=== PATIENT | female | born 1970 | race Caucasian/White ===

== ENCOUNTER 2018-10-29 22:50 | Emergency (ER) | payer SELFPAY ==
[2018-10-29 23:16] VITALS: BP 123/78; PULSE 97
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
== END 2018-10-30 00:10 | disposition home or self-care (01) ==
LOC: LL.ED 22:50
DX: M19.071 Primary osteoarthritis, right ankle and foot (principal); F17.210 Nicotine dependence, cigarettes, uncomplicated
CPT/HCPCS: 73610-RT; 99283-25

== ENCOUNTER 2023-01-09 14:38 | Emergency (ER) | payer MEDICAID ==
[2023-01-09 15:39] LABS: APPEARANCE,URINE SLIGHTLY CLOUDY; BILIRUBIN,URINE NEGATIVE (NEGATIVE); COLOR,URINE YELLOW; GLUCOSE,URINE NEGATIVE (NEGATIVE); KETONES,URINE TRACE mg/dL (NEGATIVE); LEUKOCYTE ESTERASE,URINE NEGATIVE (NEGATIVE); NITRITE,URINE POSITIVE (NEGATIVE); OCCULT BLOOD,URINE TRACE-INTACT (NEGATIVE); PH,URINE 5.5 (5.0-9.0); PROTEIN,URINE NEGATIVE (NEGATIVE); UROBILINOGEN,URINE 0.2 E.U./dL (0.2-1.0)
[2023-01-09 15:40] LABS: BASOPHILS ABSOLUTE AUTO 0.04 K/uL (0.00-0.20); BASOPHILS PERCENT AUTO 0.5 % (0.0-2.0); EOSINOPHILS PERCENT AUTO 6.2 % (0.0-5.0); HEMATOCRIT 33.5 % (34.0-46.0); HEMOGLOBIN 10.8 g/dL (11.7-15.5); LYMPHOCYTES ABSOLUTE AUTO 2.08 K/uL (0.50-3.50); LYMPHOCYTES PERCENT AUTO 25.6 % (10.0-50.0); MEAN CORPUSCULAR HEMOGLOBIN 27.6 pg (28.2-33.3); MEAN CORPUSCULAR HGB CONC 32.2 g/dL (31.7-36.0); MEAN CORPUSCULAR VOLUME 85.5 fL (84.0-98.0); MONOCYTES ABSOLUTE AUTO 0.71 K/uL (0.00-1.00); MONOCYTES PERCENT AUTO 8.7 % (2.0-14.0); PLATELET COUNT,PLT 451 K/uL (150-350); RED BLOOD CELL COUNT 3.92 M/uL (3.77-5.09); RED CELL DISTRIBUTION WIDTH 14.4 % (11.2-14.1); WHITE BLOOD CELL COUNT,WBC 8.1 K/uL (4.0-10.2)
[2023-01-09 15:48] LABS: BACTERIA,URINE MANY /HPF (NONE TO FEW); EPITHELIAL CELLS,URINE FEW /LPF; MUCUS,URINE RARE /LPF (NEGATIVE); WBC,URINE 0-5 /HPF
[2023-01-09 15:49] LABS: AMPHETAMINES SCREEN, URINE POSITIVE (NEGATIVE); BARBITURATE SCREEN,URINE NEGATIVE (NEGATIVE); BENZODIAZEPINES SCREEN,URINE NEGATIVE (NEGATIVE); COCAINE METABOLITES,URINE NEGATIVE (NEGATIVE); EDDP,URINE SCREEN NEGATIVE (NEGATIVE); METHAMPHETAMINES SCREEN, URINE POSITIVE (NEGATIVE); TCA SCREEN,URINE NEGATIVE (NEGATIVE); THC SCREEN,URINE 50 NG/ML NEGATIVE (NEGATIVE)
[2023-01-09 15:54] LABS: BUPRENORPHINE SCREEN,URINE NEGATIVE (NEGATIVE)
[2023-01-09 15:55] LABS: OXYCODONE SCREEN,URINE POSITIVE (NEGATIVE)
[2023-01-09 15:56] LABS: PROTHROMBIN TIME 9.9 SEC (9.0-11.1)
[2023-01-09 16:14] LABS: ALBUMIN 3.7 g/dL (3.4-5.0); ANION GAP 10.5 meq/L (7-15); BILIRUBIN TOTAL 0.3 mg/dL (0.2-1.0); CALCIUM 8.9 mg/dL (8.5-10.1); CARBON DIOXIDE,CO2 25.5 mmol/L (21.0-32.0); CREATININE 0.63 mg/dL (0.51-1.17); EST CRCL DRUG DOSING (CG) 84.49 mL/min; POTASSIUM,K 3.8 mmol/L (3.5-5.1); PROTEIN TOTAL,TP 7.1 g/dL (6.4-8.2)
[2023-01-09] MEDS ORDERED: Ketorolac 15 MG/ML SDV IVPUSH ONE (16:41)
[2023-01-09] MEDS ORDERED: Sodium Chloride 0.9% 10 ML Syringe FLUSH PRN (16:58)
[2023-01-09 17:39] VITALS: BP 134/78; PULSE 55
[2023-01-09] MEDS ORDERED: Ciprofloxacin 500 MG Tab PO ONE (17:49)
[2023-01-09] MEDS ORDERED: Take Home: Ciprofloxacin HCl 500 MG, 6 Tab Pack PO ONE ×2 (17:52→17:57)
== END 2023-01-09 18:10 | disposition home or self-care (01) ==
LOC: LL.ED 14:38
DX: N20.0 Calculus of kidney (principal); N39.0 Urinary tract infection, site not specified; M54.30 Sciatica, unspecified side; F17.210 Nicotine dependence, cigarettes, uncomplicated
CPT/HCPCS: 36415; 74176; 80053; 80305; 81001; 82550; 83605; 85025; 85610; 87086; 87088; 87186; 96374; 99284; A9270; J1885

== ENCOUNTER 2023-01-17 23:23 | Emergency (ER) | payer MEDICAID ==
[2023-01-18 00:34] LABS: BASOPHILS ABSOLUTE AUTO 0.02 K/uL (0.00-0.20); BASOPHILS PERCENT AUTO 0.2 % (0.0-2.0); EOSINOPHILS ABSOLUTE AUTO 0.48 K/uL (0.00-0.50); EOSINOPHILS PERCENT AUTO 5.4 % (0.0-5.0); HEMATOCRIT 35.7 % (34.0-46.0); HEMOGLOBIN 11.5 g/dL (11.7-15.5); LYMPHOCYTES ABSOLUTE AUTO 2.07 K/uL (0.50-3.50); LYMPHOCYTES PERCENT AUTO 23.2 % (10.0-50.0); MEAN CORPUSCULAR HEMOGLOBIN 27.4 pg (28.2-33.3); MEAN CORPUSCULAR HGB CONC 32.2 g/dL (31.7-36.0); MONOCYTES ABSOLUTE AUTO 0.85 K/uL (0.00-1.00); MONOCYTES PERCENT AUTO 9.5 % (2.0-14.0); NEUTROPHILS ABSOLUTE AUTO 5.49 K/uL (1.40-7.00); NEUTROPHILS PERCENT AUTO 61.7 % (45.0-80.0); PLATELET COUNT,PLT 458 K/uL (150-350); WHITE BLOOD CELL COUNT,WBC 8.9 K/uL (4.0-10.2)
[2023-01-18 00:41] LABS: APPEARANCE,URINE SLIGHTLY CLOUDY; BILIRUBIN,URINE NEGATIVE (NEGATIVE); COLOR,URINE YELLOW; GLUCOSE,URINE NEGATIVE (NEGATIVE); KETONES,URINE NEGATIVE (NEGATIVE); LEUKOCYTE ESTERASE,URINE NEGATIVE (NEGATIVE); NITRITE,URINE NEGATIVE (NEGATIVE); OCCULT BLOOD,URINE TRACE-INTACT (NEGATIVE); PH,URINE 7.5 (5.0-9.0); PROTEIN,URINE NEGATIVE (NEGATIVE); UROBILINOGEN,URINE 0.2 E.U./dL (0.2-1.0)
[2023-01-18] MEDS ORDERED: Ketorolac 30 MG/ML SDV IM ONE (00:45)
[2023-01-18 00:48] LABS: INR 0.9 (0.9-1.1); PROTHROMBIN TIME 9.3 SEC (9.0-11.1)
[2023-01-18 00:49] LABS: CORONAVIRUS COVID-19 NAA NEGATIVE (NEGATIVE); INFLUENZA A NAA NEGATIVE (NEGATIVE); INFLUENZA B NAA NEGATIVE (NEGATIVE); RESPIRATORY SYNCYTIAL VIR NAA NEGATIVE (NEGATIVE)
[2023-01-18 00:50] LABS: AMORPHOUS SEDIMENT,URINE MANY /HPF (0/HPF); BACTERIA,URINE FEW /HPF (NONE TO FEW); EPITHELIAL CELLS,URINE FEW /LPF; RBC,URINE 0-5 /HPF; WBC,URINE 0-5 /HPF
[2023-01-18 00:54] LABS: ALANINE AMINOTRANSFERASE,ALT 19 U/L (12-78); ALBUMIN 3.6 g/dL (3.4-5.0); ALKALINE PHOSPHATASE 111 IU/L (46-116); ANION GAP 8.6 meq/L (7-15); ASPARTATE AMNIOTRANSFERASE,AST 17 U/L (15-37); BILIRUBIN TOTAL 0.1 mg/dL (0.2-1.0); BLOOD UREA NITROGEN,BUN 15 mg/dL (7-18); CARBON DIOXIDE,CO2 27.4 mmol/L (21.0-32.0); CHLORIDE,CL 105 mmol/L (98-107); GLUCOSE RANDOM 91 mg/dL (70-99); POTASSIUM,K 4.1 mmol/L (3.5-5.1); SODIUM,NA 141 mmol/L (136-145)
[2023-01-18 00:55] LABS: ESTIMATED GFR 105 mL/min (>=60)
[2023-01-18] MEDS ORDERED: Take Home: Ketorolac 10 MG Tab, 4 Tab Pack PO ONE (01:12)
[2023-01-18 04:12] VITALS: BP 140/96; PULSE 79
== END 2023-01-18 01:39 | disposition home or self-care (01) ==
LOC: LL.ED 23:23
DX: N13.2 Hydronephrosis with renal and ureteral calculous obstruction (principal); J45.909 Unspecified asthma, uncomplicated; M19.90 Unspecified osteoarthritis, unspecified site; F17.210 Nicotine dependence, cigarettes, uncomplicated
CPT/HCPCS: 0241U; 36415; 74176; 80053; 81001; 85025; 85610; 96372; 99284; A9270-GY; J1885